=== PATIENT | male | born 1935 | race Caucasian/White ===

== ENCOUNTER 2016-06-24 15:35 | Emergency (ER) | payer MEDICARE ==
[~2016-06-24] VITALS: Ht 167.6 cm; Wt 68.0 kg
[2016-06-24] MEDS ORDERED: LIDOCAINE 1%-EPI 1:100,000 20 ML VIAL TP ONE (16:30)
--- NOTE | 2016-06-24 16:36 | NUR ---
PT BIBA FOR S/P FALL AT HOME WITH LEFT FOOT LACERATION. NOTED WITH ACTIVE BLEEDING. PT ON BLOOD THINNERS. DENIES HEAD TRAUMA. DENIES KO. AT BS. PT AAOX3. ABLE TO MOVE TOES ON LEFT FOOT. SEEN BY . WILL MONITOR.
--- NOTE | 2016-06-24 16:45 | NUR ---
NOTED PT'S HR 140'S MD MADE AWARE. ORDERS CARRIED OUT. IV ACCESS STARTED.
[2016-06-24 18:10] VITALS: BP 103/80
== END 2016-06-24 18:12 | disposition home or self-care (01) ==
LOC: ER 15:36
DX: S91.312A Laceration without foreign body, left foot, initial encounter (principal); I10 Essential (primary) hypertension; N40.0 Benign prostatic hyperplasia without lower urinary tract symptoms; Y93.89 Activity, other specified; Z98.890 Other specified postprocedural states; W45.8XXA Other foreign body or object entering through skin, initial encounter; Y92.89 Other specified places as the place of occurrence of the external cause; Z86.73 Personal history of transient ischemic attack (TIA), and cerebral infarction without residual deficits; Y99.8 Other external cause status
CPT/HCPCS: 12002; 93005; 99284; A4606; A6402; Z7610

== ENCOUNTER 2016-06-26 10:38 | Emergency (ER) | payer MEDICARE ==
[~2016-06-26] VITALS: Ht 165.1 cm; Wt 76.2 kg
[2016-06-26 10:43] VITALS: BP 123/77
== END 2016-06-26 11:19 | disposition home or self-care (01) ==
LOC: ER 10:41
DX: S91.312D Laceration without foreign body, left foot, subsequent encounter (principal); I10 Essential (primary) hypertension; N40.0 Benign prostatic hyperplasia without lower urinary tract symptoms; Z90.89 Acquired absence of other organs; Z86.73 Personal history of transient ischemic attack (TIA), and cerebral infarction without residual deficits; X58.XXXD Exposure to other specified factors, subsequent encounter
CPT/HCPCS: 99281; A4606; A6402; Z7502; Z7610

== ENCOUNTER 2017-08-13 15:09 | Emergency (ER) | payer MEDICARE, OTHER ==
[~2017-08-13] VITALS: Ht 162.6 cm; Wt 72.6 kg
--- NOTE | 2017-08-13 15:16 | NUR ---
BBRA FROM HOME DT SP FALL- HIT HEAD, ABRASION AT THE BACK OF THE HEAD. NO KO REPORTED. BUA NOTED WITH ABRASION. PATIENT IS AWAKE AND ALERT. APPEATS IN NO DISTRESS. RESPIRATION EVEN AND UNLABORED. SKIN IS WARM TO TOUCH AND NON DIPAHORETIC. AFEBRILE. CONNECTED PATIENT TO TELE MONITOR. VSS
[2017-08-13] MEDS ORDERED: ACETAMINOPHEN 325 MG TABLET ONE (17:28)
[2017-08-13] MEDS ORDERED: ACETAMINOPHEN 325 MG TABLET PO ONE (17:30)
[2017-08-13 17:44] LABS: BASOPHILS # (AUTO) 0.1 /CMM (0.0-0.2); BASOPHILS % (AUTO) 0.7 % (0.0-2.0); EOSINOPHILS % (AUTO) 0.5 % (0.0-6.0); HEMATOCRIT 46 % (39-51); LYMPHOCYTES # (AUTO) 1.1 /CMM (0.8-4.8); LYMPHOCYTES % (AUTO) 9.8 % (20.0-44.0); MEAN CORPUSCULAR HGB CONC 35 g/dl (31.0-36.0); MEAN CORPUSCULAR VOLUME 88 fL (80-96); MONOCYTES # (AUTO) 1.1 /CMM (0.1-1.30); MONOCYTES % (AUTO) 9.8 % (2.0-12.0); NEUTROPHILS # (AUTO) 9.1 /CMM (1.8-8.9); NEUTROPHILS % (AUTO) 79.2 % (43.0-81.0); PLATELET COUNT (AUTO) 196 /CMM (150-450); RDW COEFFICIENT OF VARIATION 12.9 (11.5-15.0); RED BLOOD CELL COUNT(AUTO) 5.21 MIL/uL (4.5-6.0); WHITE BLOOD COUNT (AUTO) 11.5 K/uL (4.3-11.0)
[2017-08-13 18:01] LABS: ALKALINE PHOSPHATASE 59 U/L (46-116); ASPARTATE AMINOTRANSFERASE 23 U/L (15-37)
[2017-08-13 18:14] LABS: ALBUMIN 3.9 g/dL (3.4-5.0); BILIRUBIN,TOTAL 2.1 mg/dL (0.2-1.0); CALCIUM, SERUM 8.8 mg/dL (8.5-10.1); CARBON DIOXIDE 23 mmol/L (21-32); CHLORIDE 103 mmol/L (98-107); CREATININE 1.3 mg/dL (0.6-1.3); GLUCOSE 132 mg/dL (74-106); POTASSIUM 3.9 mmol/L (3.5-5.1); SODIUM SERUM 135 mmol/L (136-145); TOTAL PROTEIN, SERUM 6.9 g/dL (6.4-8.2); UREA NITROGEN, BLOOD 23 mg/dL (7-18)
[2017-08-13 18:31] LABS: ALANINE AMINOTRANSFERASE 29 U/L (12-78)
--- NOTE | 2017-08-13 19:04 | NUR ---
REPORT RECEIVED FROM REBA GARCIA FOR JACOB.
--- NOTE | 2017-08-13 19:16 | NUR ---
EMT AT BEDSIDE TO CLEAN AND DRESS SKIN TEAR TO BILAT ARMS.
--- NOTE | 2017-08-13 20:06 | NUR ---
Patient is awake and alert to self, day, and place. Patient discharged to home in stable condition. Written and verbal after care instructions given. Patient verbalizes understanding of instruction. Patient ambulatory with a steady gait.
[2017-08-13 20:07] VITALS: BP 143/91
== END 2017-08-13 20:07 | disposition home or self-care (01) ==
LOC: ER 15:11
DX: S00.03XA Contusion of scalp, initial encounter (principal); S20.222A Contusion of left back wall of thorax, initial encounter; S30.0XXA Contusion of lower back and pelvis, initial encounter; S70.312A Abrasion, left thigh, initial encounter; S60.413A Abrasion of left middle finger, initial encounter; S60.812A Abrasion of left wrist, initial encounter; S40.211A Abrasion of right shoulder, initial encounter; S40.811A Abrasion of right upper arm, initial encounter; S51.812A Laceration without foreign body of left forearm, initial encounter; S40.812A Abrasion of left upper arm, initial encounter; I10 Essential (primary) hypertension; I70.0 Atherosclerosis of aorta; K44.9 Diaphragmatic hernia without obstruction or gangrene; M43.16 Spondylolisthesis, lumbar region; N28.1 Cyst of kidney, acquired; N40.0 Benign prostatic hyperplasia without lower urinary tract symptoms; Z86.73 Personal history of transient ischemic attack (TIA), and cerebral infarction without residual deficits; W10.9XXA Fall (on) (from) unspecified stairs and steps, initial encounter; Y93.89 Activity, other specified; Y92.89 Other specified places as the place of occurrence of the external cause; Y99.8 Other external cause status
CPT/HCPCS: 36415; 70450-TC; 71045-TC; 72125-TC; 72128-TC; 72131-TC; 80053-TC; 85025-TC; A4606; A6402; Z7610